=== PATIENT | female | born 1985 | race Caucasian/White ===

== ENCOUNTER 2019-02-19 07:30 | Day surgery (SDC) | payer MEDICAID ==
[2019-01-28 15:49] LABS: BASOPHILS % (AUTO) 0.3 % (0-1); EOSINOPHILS % (AUTO) 0.2 % (0-6); LYMPHOCYTES # (AUTO) 2.1 X10'3 (1.1-4.8); LYMPHOCYTES % (AUTO) 21.3 % (21-51); MEAN CORPUSCULAR HEMOGLOBIN 31.2 PG (27.0-31.0); MEAN CORPUSCULAR HGB CONC 34.4 g/dL (33.0-36.5); MEAN CORPUSCULAR VOLUME 90.8 FL (78-98); MEAN PLATELET VOLUME 7.1 FL (7.4-10.4); MONOCYTES # (AUTO) 0.6 X10'3 (0-0.9); MONOCYTES % (AUTO) 6.2 % (2-12); NEUTROPHILS # (AUTO) 7.2 X10'3 (1.8-7.7); PRE OP HEMATOCRIT 41.7 % (35.0-45.0); PRE OP HEMOGLOBIN 14.3 g/dL (12.0-16.0); PRE OP PLATELET COUNT 363 X10'3 (140-440); RED BLOOD COUNT 4.59 X10'6 (4.20-5.60)
[2019-01-28 16:00] LABS: HCG SERUM QL NEGATIVE
[2019-01-28 16:08] LABS: ALBUMIN 4.1 G/DL (3.4-5.0); ALBUMIN/GLOBULIN RATIO 0.9 (1.1-1.5); ALKALINE PHOSPHATASE 90 IU/L (46-116); BLOOD UREA NITROGEN 9 MG/DL (7-18); BUN/CREATININE RATIO 10.7 (6.6-38.0); CALCIUM 9.2 MG/DL (8.5-10.1); CHLORIDE 102 MMOL/L (99-107); CREATININE 0.84 MG/DL (0.40-0.90); PRE OP ALT 28 U/L (30-65); PRE OP ANION GAP 10 (8-16); PRE OP AST 16 U/L (10-37); PRE OP BILIRUB, TOTAL 0.3 MG/DL (0.0-1.0); PRE OP GLUCOSE 81 MG/DL (70-104); PRE OP POTASSIUM 3.8 MMOL/L (3.4-5.1); PRE OP SODIUM 140 MMOL/L (135-145); TOTAL CARBON DIOXIDE 27.8 MMOL/L (24-32); TOTAL PROTEIN 8.6 G/DL (6.4-8.2); eGFR 79 ML/MIN
[2019-02-19] VITALS (7 sets, daily range): BP systolic 124–145; BP diastolic 66–79
[~2019-02-19] VITALS: Ht 160 cm; Wt 90.5 kg
[~2019-02-19 07:30] MED LIST: CLIN60SO2 TOP; CYCL10TA26 PO; GABA-532 PO; LACT1CAP73 PO; LORA10TA7 PO; SERT50TA PO; VALA500T37 PO; VANCOMYCIN INJ 1000 MG in NORMAL SALINE 250ml IV.SOLN IV ONE; cefazolin/dext.iso 2gm/50ml 50 ML IV ONE; famotidine 20mg tablet PO ONE; ringers solution, lacted 1,000 ML IV SCH
[2019-02-19] MEDS ORDERED: BUPIVACAINE liposomal/PF 13.3 MG/ML vial IM ONE (08:25)
[2019-02-19] MEDS ORDERED: sevoflurane 250ml liquid IH ONE (09:52)
[2019-02-19] MEDS ORDERED: dexamethasone sod phosphate 10mg/ml inj ONE (09:52)
[2019-02-19] MEDS ORDERED: BUPIVAcaine 0.5% inj/PF 30 ML ONE (09:58)
[2019-02-19] MEDS ORDERED: fentaNYL/PF 50MCG/1 ML 2ML syringe ONE (10:01)
[2019-02-19] MEDS ORDERED: midazolam 2 mg/2 ml injection ONE (10:01)
[2019-02-19] MEDS ORDERED: ondansetron/PF 4mg/2ml inj ONE (10:20)
[2019-02-19] MEDS ORDERED: LIDOcaine 2% (20mg/ml) 5ml vial ONE (10:20)
[2019-02-19] MEDS ORDERED: propofol inj 20 ML IV ONE (10:20)
[2019-02-19] MEDS ORDERED: ringers solution, lacted 1,000 ML IV SCH (10:43)
[2019-02-19] MEDS ORDERED: morphine 4 MG/ML inj SYRINge IV PRN ×2 (10:45)
[2019-02-19] MEDS ORDERED: hydrALAZINE 20mg/ml inj. IV PRN (10:45)
[2019-02-19] MEDS ORDERED: fentaNYL/PF 50MCG/1 ML 2ML syringe IV PRN ×2 (10:45)
[2019-02-19] MEDS ORDERED: ondansetron/PF 4mg/2ml inj IV PRN (10:45)
[2019-02-19] MEDS ORDERED: labetalol 20mg/4ml (5mg/ml) syringe IV PRN (10:45)
[2019-02-19] MEDS ORDERED: BUPIVAcaine/PF 2.5mg/ml (0.25%) 10ml vial ONE (10:56)
[2019-02-19] MEDS ORDERED: BUPIVAcaine/PF 2.5mg/ml (0.25%) 10ml vial IJ ONE (11:00)
--- NOTE | 2019-02-19 11:11 | NUR ---
Received from OR via carol, accompanied by Anesthesiologist ANAM and report given by Anesthesiolgist. Pt awake and alert on RA sats 100% answering all questions appropriately. VS stable. Can wiggle all fingers to right hand except thumb, mild numness, no pain. 4x4 tape to right shoulder CDI with sling. Glasses on. IVF LR at 100cc/hr to left forearm.
--- NOTE | 2019-02-19 12:21 | NUR ---
Pt DC'd by wheelchair to vehicle without incident. Family present for DC instructions, all persons verablized understanding of DC info. IV DC'd, dressing remains CDI. Pt knows to redress wound on Saturday if any signs of drainage or infection and to call 's office. Patient has elo at home, MD aware, no new scripts. Pt ambulated, ate, voided and drank fluids prior to DC. Pain still 0/10. Stable for DC.
== END 2019-02-19 12:21 | disposition home or self-care (01) ==
LOC: PAS 07:30
PROVIDERS: ATTEND Orthopaedic Surgery
DX: M19.011 Primary osteoarthritis, right shoulder (principal); M75.41 Impingement syndrome of right shoulder; M94.211 Chondromalacia, right shoulder; M65.811 Other synovitis and tenosynovitis, right shoulder; G89.18 Other acute postprocedural pain; F41.9 Anxiety disorder, unspecified; E66.8 Other obesity; Z68.36 Body mass index [BMI] 36.0-36.9, adult; Z87.891 Personal history of nicotine dependence; Z72.89 Other problems related to lifestyle; Z98.890 Other specified postprocedural states; Z88.8 Allergy status to other drugs, medicaments and biological substances; Z79.899 Other long term (current) drug therapy
CPT/HCPCS: 29823; 29824; 29826; 36415; 64415; 80053; 82948; 84703; 85025; C9290; J1100; J2001; J2250; J2405; J2704; J3010; J3370; J3490; A4215; A4565; A4618; A6250; A6449; A7000; J7120